=== PATIENT | female | born 1990 | race African-American/Black ===

== ENCOUNTER 2016-06-05 22:43 | Emergency (ER) | payer OTHER ==
[~2016-06-05] VITALS: Ht 167.6 cm; Wt 95.3 kg
[~2016-06-05 22:43] MED LIST: ALBU8.5H3 IH; LEVO750T31 PO; PRED20TA PO; PRED50TA PO; PROM118S2 PO
[2016-06-05 23:00] VITALS: BP 125/81
[2016-06-05] MEDS ORDERED: ALBU8.5H3 INH (23:11)
[2016-06-05] MEDS ORDERED: AZIT250T6 PO (23:11)
[2016-06-05] MEDS ORDERED: ALBUTEROL SULFATE 2.5 MG/3 ML NEBU. NEB ONE (23:30)
[2016-06-05] MEDS ORDERED: ALBUTEROL SULFATE 8GM INHALER. INH ONE (23:45)
--- NOTE | 2016-06-06 01:14 | ED.ADGEN ---
Past History Past Medical History: Asthma, Bronchitis Past Surgical History: No Surgical History Smoking: Cigarettes, Less than 1pk/day Additional Smoking Information: Education completed on smoking cessation Alcohol Use: None Drug Use: None Adult General Chief Complaint Chief Complaint Location refill, mild asthma exacerbation [facility] HPI This pleasant 26 showed female with a known history of asthma and hypertension presents with need for medication refill and wheezing. Patient has had an issue with daily cough and wheezing for weeks typically uses her inhaler 3-4 times a day but continues to smoke. Today her children were playing with her pro-air inhaler using all of her medication she had no witnessed treat herself today which is why she came to the emergency department. She denies any production with this cough denies any sore throat denies any runny nose congestion denies any chest pain. She does hear a slight wheeze she denies any recent antimicrobial use or steroids use. She has never been intubated or hospitalized for her asthma. She denies fevers or weight loss or night sweats nausea vomiting or change in voice with this cough. Review of Systems Review of Systems Constitutional: Denies fever or chills [] Eyes: Denies change in visual acuity, redness, or eye pain [] HENT: Denies nasal congestion or sore throat [] Respiratory: She has a nonproductive cough and slight wheezing with shortness of breath. Cardiovascular: No additional information not addressed in HPI [] GI: Denies abdominal pain, nausea, vomiting, bloody stools or diarrhea [] : Denies dysuria or hematuria [] Musculoskeletal: Denies back pain or joint pain [] Integument: Denies rash or skin lesions [] Neurologic: Denies headache, focal weakness or sensory changes [] Endocrine: Denies polyuria or polydipsia [] Current Medications Current Medications Current Medications Medications (Trade) Dose Ordered Sig/Emmanuelle Start Time Stop Time Status Last Admin Dose Admin Albuterol Sulfate (Ventolin Hfa) 1 puff 1X ONCE 06/05/16 23:45 06/05/16 23:46 DC 06/05/16 23:30 1 PUFF Albuterol Sulfate (Ventolin) 2.5 mg 1X ONCE 06/05/16 23:30 06/05/16 23:32 DC 06/05/16 23:07 2.5 MG Allergies Allergies Allergies Coded Allergies Type Severity Reaction Last Updated Verified No Known Drug Allergies 07/31/14 No Physical Exam Physical Exam Constitutional: Well developed, well nourished, no acute distress, non-toxic appearance. [] HENT: Normocephalic, atraumatic, bilateral external ears normal, oropharynx moist, no oral exudates, nose normal. [] Neck: Normal range of motion, no tenderness, supple, no stridor. [] Cardiovascular:Heart rate regular rhythm, no murmur [] Lungs & Thorax: No respiratory distress accessory muscle use slight wheeze with expiration. Abdomen: Bowel sounds normal, soft, no tenderness, no masses, no pulsatile masses. [] Skin: Warm, dry, no erythema, no rash. [] Back: No tenderness, no CVA tenderness. [] Extremities: No tenderness, no cyanosis, no clubbing, ROM intact, no edema. [] Neurologic: Alert and oriented X 3, normal motor function, normal sensory function, no focal deficits noted. [] Psychologic: Affect normal, judgement normal, mood normal. [] Current Patient Data Vital Signs Vital Signs Date Time Temp Pulse Resp B/P Pulse Ox O2 Delivery O2 Flow Rate FiO2 06/05/16 23:22 86 18 100 Room Air 06/05/16 23:00 98.1 EKG EKG [] Radiology/Procedures Radiology/Procedures [] Impressions: Mild asthma exacerbation, bronchitis, medication refill Course & Med Decision Making Course & Med Decision Making Pertinent Labs and Imaging studies reviewed. (See chart for details) [Patient with a known history of asthma but continues to smoke she is presently out of medications Rx for bronchitis as well as mild asthma to include azithromycin, albuterol, and a sternum talking to him about smoking cessation. Patient understands need for follow-up with chain link fence installer to modify her medications a primary care physician help her quit smoking and a need to control her medications and keep him out of her head and her children. She was also instructed at length about use of albuterol and spacer to improve delivery medications to her lungs.] Final Impression Final Impression [Patient refill mild asthma exacerbation], bronchitis Problems: Dragon Disclaimer Dragon Disclaimer This electronic medical record was generated, in whole or in part, using a voice recognition dictation system. PRIYA DILLON MD Jun 06, 2016 01:14
== END 2016-06-05 23:22 | disposition home or self-care (01) ==
LOC: ER 22:43
DX: Z76.0 Encounter for issue of repeat prescription (principal); J45.901 Unspecified asthma with (acute) exacerbation; J40 Bronchitis, not specified as acute or chronic; I10 Essential (primary) hypertension; F17.210 Nicotine dependence, cigarettes, uncomplicated
CPT/HCPCS: 94640; 99283; J7613

== ENCOUNTER 2016-09-06 08:33 | Emergency (ER) | payer OTHER ==
[~2016-09-06 08:33] MED LIST changes: -ALBU8.5H3 IH; +ALBU8.5H8 IH; +ALBU8.5H8 INH; +AZIT250T6 PO
--- NOTE | 2016-09-06 08:53 | PHYS DOC ---
Past History Past Medical History: Asthma, Bronchitis Past Surgical History: No Surgical History Smoking: Cigarettes, Less than 1pk/day Alcohol Use: None Drug Use: None Adult General Chief Complaint Chief Complaint: multiple HPI HPI Patient is a 26 year old female with a history of asthma who presents ambulatory to the ED with the complaint of being sick for about 2 days. #1, she has had a toothache in her left maxillary tooth and has some swelling of her cheek in that area now. #2 she has had a cough, wheezing, fever, sweats, chills , has felt sleepy and weak. These symptoms have been present when she had pneumonia in the past. She believes she might have pneumonia. She's had no vomiting. She has not been using her inhaler more frequently than usual. She does have an inhaler. She also has a nebulizer machine with medications. She does not currently have the mask to use it with. No other chronic medical problems, denies . Review of Systems Review of Systems Constitutional: As in history of present illness HENT: Dental complaint as in history of present illness Respiratory: As in history of present illness GI: Denies vomiting : Denies Musculoskeletal: Complains of aches and pains Integument: Denies rash or skin lesions [] Neurologic: Denies headache, focal weakness or sensory changes [] Allergies Allergies Allergies Coded Allergies Type Severity Reaction Last Updated Verified No Known Drug Allergies 07/31/14 No Physical Exam Physical Exam Constitutional: Well developed, well nourished, no acute distress, non-toxic appearance. Ambulatory, has a wheezy sounding cough, heart rate in the 130s, pulse ox on room air 95% HENT: Normocephalic, atraumatic, bilateral external ears normal, left maxillary second molar has a fracture and obvious caries with an old filling. There is no gingival swelling or drainage in this area, no evidence of periapical abscess. Externally, the left cheek is very slightly swollen without redness. Eyes: conjunctiva normal, no discharge. [] Neck: Normal range of motion, no stridor. [] Cardiovascular:Heart rate regular tachycardia, no murmur [] Lungs & Thorax: Moderately good air movement throughout with bilateral equal breath sounds, expiratory wheezes present throughout, no rales or rhonchi Skin: Warm, dry, no erythema, no rash. [] Extremities: No tenderness, no cyanosis, no clubbing, ROM intact, no edema. [] Neurologic: Alert and oriented X 3, normal motor function, normal sensory function, no focal deficits noted. [] EKG EKG [] Radiology/Procedures Radiology/Procedures Two-view chest x-ray read by me. Negative for infiltrate. [] Course & Med Decision Making Course & Med Decision Making Pertinent Labs and Imaging studies reviewed. (See chart for details) 26-year-old female with a history of asthma presents with 2 problems. #1, dental infection. #2, fever, cough, concern for pneumonia. She is relatively well appearing although tachycardic. I discussed with the patient giving her some IV fluids and a breathing treatment and checking a chest x-ray, she is agreeable to that plan. Patient was given a liter of IV fluids, 2 breathing treatments, and some IV steroids. Reexam of the lungs, better air movement, still with some end expiratory wheezes but much more clear. The patient has no dyspnea. Heart rate came down to around 100 after a liter of IV normal saline. See instructions for plan. [] Dragon Disclaimer Dragon Disclaimer This chart was dictated in whole or in part using Voice Recognition software in a busy, high-work load, and often noisy Emergency Department environment. It may contain unintended and wholly unrecognized errors or omissions. Departure Departure: Impression: Primary Impression: Dental infection Additional Impressions: Bronchitis Asthma exacerbation Disposition: 01 HOME, SELF-CARE Condition: IMPROVED Referrals: LINDSAY BOTELLO MD (PCP) Patient Instructions: Asthma, Adult, [id number], Dental Caries Additional Instructions: I have prescribed an antibiotic that will work for a dental infection and bronchitis. Take as directed. It is a 5 day antibiotic. For dental infection, it's important to see a dentist as soon as possible and get that tooth taken care of. For wheezing and bronchitis, take prednisone (steroid) as directed. You had your first dose in the emergency department today. Take your next dose this evening with dinner. After that, take every morning until gone. Take breathing treatments every 4 hours while awake. If you are not able to take a breathing treatment, use your inhaler instead. If your wheezing or shortness of breath worsens, return to emergency. Scripts Prednisone (PREDNISONE) 20 Mg Tablet 2 TAB PO DAILY for asthma, #10 TAB Prov: LEIF ZAMUDIO MD 09/06/16 Azithromycin (ZITHROMAX) 250 Mg Tablet 1 PKG PO UD for dental, bronchitis, #6 TAB Prov: LEIF ZAMUDIO MD 09/06/16 Problem Qualifiers LEIF ZAMUDIO MD Sep 06, 2016 08:53
[2016-09-06] MEDS ORDERED: IV NORMAL SALINE 1,000ML 1,000 ML IV SCH (09:00)
[2016-09-06] MEDS ORDERED: ACETAMINOPHEN 500 MG TABLET PO ONE (09:00)
[2016-09-06] MEDS ORDERED: methylPREDNISolone SOD SUCC PF 125 MG/2 ML VIAL. IV ONE (09:00)
[2016-09-06] MEDS ORDERED: IPRATRPIUM/ALBUTEROL 0.5/2.5MG 3 ML NEBU. NEB ONE ×2 (09:00→09:45)
--- NOTE | 2016-09-06 09:24 | RAD ---
2 view CXR: Clinical indications: Shortness of air and fever and weakness. History of asthma. Comparison: September 24, 2014. Findings: No acute lung infiltrate or pleural effusion or pulmonary edema or lung mass or pneumothorax is seen. The heart size, pulmonary vasculature, mediastinum and both chilo are unremarkable. The osseous structures appear intact. Impression: No acute radiographic abnormality is seen.
[2016-09-06] MEDS ORDERED: AZIT250T PO (10:11)
[2016-09-06] MEDS ORDERED: PRED20TA PO (10:11)
[2016-09-06] MEDS ORDERED: HYDROcodone/APAP 5/325MG 1 TAB TABLET ONE (10:24)
[2016-09-06 10:25] VITALS: BP 132/66
[2016-09-06] MEDS ORDERED: HYDROcodone/APAP 5/325MG 1 TAB TABLET PO ONE (10:30)
== END 2016-09-06 10:27 | disposition home or self-care (01) ==
LOC: ER 08:33
DX: K04.7 Periapical abscess without sinus (principal); J45.901 Unspecified asthma with (acute) exacerbation; F17.210 Nicotine dependence, cigarettes, uncomplicated
CPT/HCPCS: 71020; 94640; 96361; 96374; 99284; J2930; J7620; J7030

== ENCOUNTER 2016-11-03 15:06 | Emergency (ER) | payer OTHER ==
[~2016-11-03 15:06] MED LIST changes: +AZIT250T PO
[2016-11-03] MEDS ORDERED: IV NORMAL SALINE 1,000ML 1,000 ML IV SCH (15:24)
[2016-11-03 16:01] LABS: BARBITURATES NEG (NEG); BENZODIAZEPINES NEG (NEG); CANNABINOIDS POS (NEG); COCAINE NEG (NEG); METHADONE NEG (NEG); OPIATES NEG (NEG); PHENCYCLIDINE NEG (NEG)
[2016-11-03 16:02] LABS: AMPHETAMINE/METHAMPHETAMINE NEG (NEG)
--- NOTE | 2016-11-03 16:06 | PHYS DOC ---
Past History Past Medical History: Asthma Past Surgical History: No Surgical History Smoking: Cigarettes, Less than 1pk/day Alcohol Use: None Drug Use: None Adult General Chief Complaint Chief Complaint: ABDOMINAL PAIN HPI HPI Patient is a 26 year old -[place] female who presents with suprapubic discomfort. She states his been going on for approximately 2 weeks. Crampy in nature and goes away when she lays flat and is worse when she is up walking around. She denies any fevers chills nausea or vomiting, dysuria, vaginal bleeding discharge or constipation. She states she's been taking Tylenol for it daily. She can get in to see her primary care physician secondary to scheduling conflicts. She is unsure if she could be . She does have a history of social transmitted infections but she states his been many years ago. Review of Systems Review of Systems Constitutional: Denies fever or chills [] Eyes: Denies change in visual acuity, redness, or eye pain [] HENT: Denies nasal congestion or sore throat [] Respiratory: Denies cough or shortness of breath [] Cardiovascular: No additional information not addressed in HPI [] GI: Positive for abdominal pain, Denies nausea, vomiting, bloody stools or diarrhea [] : Denies dysuria or hematuria [] Musculoskeletal: Denies back pain or joint pain [] Integument: Denies rash or skin lesions [] Neurologic: Denies headache, focal weakness or sensory changes [] Endocrine: Denies polyuria or polydipsia [] Current Medications Current Medications Current Medications Medications (Trade) Dose Ordered Sig/Emmanuelle Start Time Stop Time Status Last Admin Dose Admin Fentanyl Citrate (Fentanyl 2ml Vial) 25 mcg PRN Q15MIN PRN 11/03/16 15:30 11/04/16 15:29 Sodium Chloride 1,000 ml @ 1,000 mls/hr Q1H 11/03/16 15:24 11/03/16 16:23 Allergies Allergies Allergies Coded Allergies Type Severity Reaction Last Updated Verified No Known Drug Allergies 07/31/14 No Physical Exam Physical Exam Constitutional: Well developed, well nourished, no acute distress, non-toxic appearance. [] HENT: Normocephalic, atraumatic, bilateral external ears normal, oropharynx moist, no oral exudates, nose normal. [] Eyes: PERRLA, EOMI, conjunctiva normal, no discharge. [] Neck: Normal range of motion, no tenderness, supple, no stridor. [] Cardiovascular:Heart rate regular rhythm, no murmur [] Lungs & Thorax: Bilateral breath sounds clear to auscultation [] Abdomen: Bowel sounds normal, soft, mild tender palpation in the suprapubic and right upper quadrant Bridget no rebound or guarding, no masses, no pulsatile masses. [] Skin: Warm, dry, no erythema, no rash. [] Back: No tenderness, no CVA tenderness. [] Extremities: No tenderness, no cyanosis, no clubbing, ROM intact, no edema. [] Neurologic: Alert and oriented X 3, normal motor function, normal sensory function, no focal deficits noted. [] Psychologic: Affect normal, judgement normal, mood normal. [] Current Patient Data Lab Results Laboratory Tests Test 11/03/16 15:20 Urine Opiates Screen Neg (NEG) Urine Methadone Screen Neg (NEG) Urine Barbiturates Neg (NEG) Urine Phencyclidine Screen Neg (NEG) Urine Amphetamine/Methamphetamine Neg (NEG) Urine Benzodiazepines Screen Neg (NEG) Urine Cocaine Screen Neg (NEG) Urine Cannabinoids Screen Pos (NEG) Urine Ethyl Alcohol Neg (NEG) EKG EKG [] Radiology/Procedures Radiology/[place] [address] IMAGING REPORT Signed PATIENT: ANN MARIE BLACKBURN ACCOUNT: [id number] : 1990 LOCATION: ER AGE: 26 SEX: F EXAM STATUS: REG ER ORD. PHYSICIAN: BELA BLUM MD REASON: abd pain PROCEDURE: OB <14 WKS Obstetrical ultrasound less than 14 weeks HISTORY: Abdominal pain COMPARISON: None FINDINGS: Multiple transabdominal sonographic images of the pelvis are submitted. Pelvic structures are poorly visualized. Transvaginal ultrasound: Multiple transvaginal sonographic images of the pelvis are submitted. Uterus measured 9.1 x 5.7 x 7.1 cm. Endometrium measured 0.9 cm. There is likely gestational sac in the uterus. pole, yolk sac, and cardiac activity are not seen at this time. Mean sac dimension of 0.67 cm corresponds with 5 weeks 3 days. Adjusted ultrasound age is 5 weeks 3 days with estimated delivery dated 07/03/2017. No significant free fluid is demonstrated. Amniotic fluid volume is considered within normal limits. Gestational sac morphology is within normal limits. Right maternal ovary measured 3.9 x 2.9 x 3 cm. There is 1.9 x 1.9 x 2 cm focus of hypoechogenicity of the right ovary. There is normal low resistance vascularity of the right ovary. Left ovary could not be visualized. IMPRESSION: 1. There is a single intrauterine gestational sac, adjusted ultrasound age 5 weeks 3 days with estimated delivery date 07/03/2017. cardiac activity is not seen at this time for which correlation with quantitative beta hCG and close interval follow-up imaging if needed is recommended. 2. There is likely corpus luteal cyst of the right ovary. 2. Left ovary could not be visualized. Electronically signed by: Dalton Marquez MD (11/03/2016 5:24 PM) [facility] DICTATED AND SIGNED BY: DALTON MARQUEZ MD DATE: 11/03/16 172 CC: BELA BLUM MD; LINDSAY BOTELLO MD ~ Course & Med Decision Making Course & Med Decision Making Pertinent Labs and Imaging studies reviewed. (See chart for details) [] Dragon Disclaimer Dragon Disclaimer This chart was dictated in whole or in part using Voice Recognition software in a busy, high-work load, and often noisy Emergency Department environment. It may contain unintended and wholly unrecognized errors or omissions. Departure Departure: Impression: Primary Impression: Hypokalemia Disposition: 07 AGAINST MEDICAL ADVICE Condition: STABLE Referrals: LINDSAY BOTELLO MD (PCP) Patient Instructions: Hypokalemia Additional Instructions: Your blood work shows her potassium level is low and you will need take medicines for the next 3 days to help replace it. You received the first dose later in the emergency department. Your ultrasound of your pelvis is pending at this time. I also have a bladder infection when he taken an antibiotic for the next 10 days. Your being prescribed nitrofurantoin/Macrobid for urinary tract infection. You can't states he gets or rebound ports and he went to leave against medical records assistant. You will need to follow-up with BODY WORK AUTO TRIMMER within the next several days. Please call their office to schedule appointment. Patient call DR. VALDES at [address] [address] IMAGING REPORT Signed PATIENT: ANN MARIE BLACKBURN ACCOUNT: [id number] : 1990 LOCATION: ER AGE: 26 SEX: F EXAM STATUS: REG ER ORD. PHYSICIAN: BELA BLUM MD REASON: abd pain PROCEDURE: OB <14 WKS Obstetrical ultrasound less than 14 weeks HISTORY: Abdominal pain COMPARISON: None FINDINGS: Multiple transabdominal sonographic images of the pelvis are submitted. Pelvic structures are poorly visualized. Transvaginal ultrasound: Multiple transvaginal sonographic images of the pelvis are submitted. Uterus measured 9.1 x 5.7 x 7.1 cm. Endometrium measured 0.9 cm. There is likely gestational sac in the uterus. pole, yolk sac, and cardiac activity are not seen at this time. Mean sac dimension of 0.67 cm corresponds with 5 weeks 3 days. Adjusted ultrasound age is 5 weeks 3 days with estimated delivery dated 07/03/2017. No significant free fluid is demonstrated. Amniotic fluid volume is considered within normal limits. Gestational sac morphology is within normal limits. Right maternal ovary measured 3.9 x 2.9 x 3 cm. There is 1.9 x 1.9 x 2 cm focus of hypoechogenicity of the right ovary. There is normal low resistance vascularity of the right ovary. Left ovary could not be visualized. IMPRESSION: 1. There is a single intrauterine gestational sac, adjusted ultrasound age 5 weeks 3 days with estimated delivery date 07/03/2017. cardiac activity is not seen at this time for which correlation with quantitative beta hCG and close interval follow-up imaging if needed is recommended. 2. There is likely corpus luteal cyst of the right ovary. 2. Left ovary could not be visualized. Electronically signed by: Dalton Marquez MD (11/03/2016 5:24 PM) [facility] DICTATED AND SIGNED BY: DALTON MARQUEZ MD DATE: 11/03/16 9461 CC: BELA BLUM MD; LINDSAY BOTELLO MD ~ Scripts Nitrofurantoin Monohyd/M-Cryst (MACROBID 100 MG CAPSULE) 100 Mg Capsule 1 CAP PO BID, #10 CAP Prov: BELA BLUM MD 11/03/16 Potassium Chloride (POTASSIUM CHLORIDE) 20 Meq Tablet.er 20 MEQ PO DAILY, #3 TAB Prov: BELA BLUM MD 11/03/16 BELA BLUM MD Nov 03, 2016 16:06
[2016-11-03 16:07] LABS: BASO % 0 % (0-3); EOS # 0.2 x10^3/uL (0.0-0.7); EOS % 2 % (0-3); HEMATOCRIT 38.6 % (36.0-47.0); HEMOGLOBIN 13.3 g/dL (12.0-15.5); LYMPH # 3.5 x10^3/uL (1.0-4.8); LYMPH % 35 % (24-48); MEAN CORPUSCULAR HEMOGLOBIN 32 pg (25-35); MEAN CORPUSCULAR HGB CONC 34 g/dL (31-37); MEAN CORPUSCULAR VOLUME 92 fL (79-100); MONO # 0.5 x10^3/uL (0.0-1.1); MONO % 5 % (0-9); NEUT # 5.8 x10^3uL (1.8-7.7); NEUT % 58 % (31-73); PLATELET COUNT 256 x10^3/uL (140-400); RED BLOOD COUNT 4.19 x10^6/uL (3.50-5.40); RED CELL DISTRIBUTION WIDTH 13.1 % (11.5-14.5)
[2016-11-03 16:08] VITALS: BP 126/72
[2016-11-03 16:17] LABS: ALBUMIN 4.2 g/dL (3.4-5.0); CREATININE 0.7 mg/dL (0.6-1.0); DIRECT BILIRUBIN 0.2 mg/dL (0.0-0.2); GFR 122.4; TOTAL BILIRUBIN 0.8 mg/dL (0.2-1.0); TOTAL PROTEIN 8.1 g/dL (6.4-8.2)
[2016-11-03 16:19] LABS: POTASSIUM 2.9 mmol/L (3.5-5.1)
[2016-11-03 16:25] LABS: CLARITY,URINE CLEAR; COLOR,URINE AMBER; GLUCOSE,URINE NEG (NEG)
[2016-11-03 16:26] LABS: BILIRUBIN,URINE NEG (NEG); NITRITE,URINE NEG (NEG); UROBILINOGEN,URINE 1 mg/dL (0.2 mg/dL)
[2016-11-03 16:27] LABS: BACTERIA,URINE FEW /HPF (0-FEW); SQUAMOUS EPITHELIAL CELL,UR MANY /LPF
[2016-11-03] MEDS ORDERED: IOHEXOL 300 MG/ML 75 ML VIAL. IV ONE (16:30)
[2016-11-03] MEDS ORDERED: NITR100C62 PO (17:16)
[2016-11-03] MEDS ORDERED: POTA20TA82 PO (17:16)
[2016-11-03] MEDS ORDERED: POTASSIUM CHLORIDE 20 MEQ TABLET.ER. PO ONE (17:20)
--- NOTE | 2016-11-03 17:28 | RAD ---
Obstetrical ultrasound less than 14 weeks HISTORY: Abdominal pain COMPARISON: None FINDINGS: Multiple transabdominal sonographic images of the pelvis are submitted. Pelvic structures are poorly visualized. Transvaginal ultrasound: Multiple transvaginal sonographic images of the pelvis are submitted. Uterus measured 9.1 x 5.7 x 7.1 cm. Endometrium measured 0.9 cm. There is likely gestational sac in the uterus. pole, yolk sac, and cardiac activity are not seen at this time. Mean sac dimension of 0.67 cm corresponds with 5 weeks 3 days. Adjusted ultrasound age is 5 weeks 3 days with estimated delivery dated 07/03/2017. No significant free fluid is demonstrated. Amniotic fluid volume is considered within normal limits. Gestational sac morphology is within normal limits. Right maternal ovary measured 3.9 x 2.9 x 3 cm. There is 1.9 x 1.9 x 2 cm focus of hypoechogenicity of the right ovary. There is normal low resistance vascularity of the right ovary. Left ovary could not be visualized. IMPRESSION: 1. There is a single intrauterine gestational sac, adjusted ultrasound age 5 weeks 3 days with estimated delivery date 07/03/2017. cardiac activity is not seen at this time for which correlation with quantitative beta hCG and close interval follow-up imaging if needed is recommended. 2. There is likely corpus luteal cyst of the right ovary. 2. Left ovary could not be visualized. Electronically signed by: Jesus Ellsworth MD (11/03/2016 5:24 PM) [facility]
== END 2016-11-03 17:40 | disposition left against medical advice (07) ==
LOC: ER 15:06
DX: E87.6 Hypokalemia (principal); Z33.1 Pregnant state, incidental; J45.909 Unspecified asthma, uncomplicated; F17.210 Nicotine dependence, cigarettes, uncomplicated
CPT/HCPCS: 36415; 76801; 80048; 80076; 80307; 81001; 81025; 82550; 83690; 83735; 84702; 85025; 85610; 85730; 96361; 96374; 99285; J3010; G0479; J7030

== ENCOUNTER 2017-05-12 20:17 | Emergency (ER) | payer OTHER ==
[~2017-05-12] VITALS: Ht 167.6 cm; Wt 110.3 kg
[~2017-05-12 20:17] MED LIST changes: +NITR100C62 PO; +POTA20TA82 PO
--- NOTE | 2017-05-12 20:19 | ED.ADGEN ---
Past History Past Medical History: Asthma Past Surgical History: No Surgical History Smoking: Cigarettes, Less than 1pk/day Alcohol Use: Rarely Drug Use: Marijuana Adult General Chief Complaint Chief Complaint " I am about 30 weeks... I ve been feeling lower pressure all day... and back pain..." " I feel like I am having contractions every 16 to 20 minutes..." HPI HPI Patient is a 27 year old female who presents with above hx and complaints back and abdomen pain. Pt. is reportedly 30 wks. gravid. Pt. G 7& P3. Has had 4 prior miscarriages. Pt. follows at [facility]- with "Jreemy". Pt. reportedly to follow with [facility] for delivery. Prior US child was breach, but recently turned to the cephalic position.. No history of trauma. No history of travel. Patient does smoke. Patient has had a 11 lifetime sex partners. Previous infections of chlamydia which was treated. Patient denies any vaginal bleeding or fluid noted. Patient normally follows with [facility] for her problems. Pt. not taking her vitamins. Review of Systems Review of Systems Constitutional: Denies fever or chills [] Eyes: Denies change in visual acuity, redness, or eye pain [] HENT: Denies nasal congestion or sore throat [] Respiratory: Denies cough or shortness of breath [] Cardiovascular: No additional information not addressed in HPI [] GI: Complaints of abdominal pain, nausea,. Denies vomiting, bloody stools or diarrhea [] : Denies dysuria or hematuria [] Musculoskeletal: Complaints of back pain . Denies other joint pain [] Integument: Denies rash or skin lesions [] Neurologic: Denies headache, focal weakness or sensory changes [] Endocrine: Denies polyuria or polydipsia [] All other systems were reviewed and found to be within normal limits, except as documented in this note. Family History Family History Non-contributory Current Medications Current Medications Current Medications Medications (Trade) Dose Ordered Sig/Emmanuelle Start Time Stop Time Status Last Admin Dose Admin Acetaminophen/ Hydrocodone Bitart (Lortab 5/325) 2 tab 1X ONCE 05/12/17 20:45 05/12/17 20:46 DC 05/12/17 21:19 2 TAB Ceftriaxone Sodium 1 gm/ Sodium Chloride 50 ml @ 100 mls/hr 1X ONCE 05/12/17 22:00 05/12/17 22:27 DC Ceftriaxone Sodium (Rocephin Im) 1 gm 1X ONCE 05/12/17 22:30 05/12/17 22:31 DC 05/12/17 22:42 1 GM Lactated Ringer's 1,000 ml @ 1,000 mls/hr 1X ONCE 05/12/17 22:30 05/12/17 23:27 DC 05/12/17 22:42 1,000 MLS/HR Lidocaine HCl 20 ml STK-MED ONCE 05/12/17 22:36 05/12/17 22:37 DC Magnesium Sulfate 50 ml @ 25 mls/hr 1X ONCE 05/12/17 21:15 05/12/17 23:14 DC 05/12/17 21:18 25 MLS/HR See Nursing for home meds. Allergies Allergies Allergies Coded Allergies Type Severity Reaction Last Updated Verified No Known Drug Allergies 07/31/14 No Physical Exam Physical Exam Constitutional: mild distress, non-toxic appearance. [] HENT: Normocephalic, atraumatic, bilateral external ears normal, oropharynx moist, no oral exudates, nose normal. [] Eyes: PERRLA, EOMI, conjunctiva normal, no discharge. [] Neck: Normal range of motion, no tenderness, supple, no stridor. [] Cardiovascular:Heart rate regular rhythm, no murmur [] Lungs & Thorax: Bilateral breath sounds scattered wheezes at apex on auscultation [] Abdomen: Bowel sounds normal, soft, mild tenderness, no masses, no pulsatile masses. [] Gravid. Vaginal - no bleeding or me on excluded noted. Mild discharge. Rectal hard stool in vault. FHR 140-150. No contractions noted. Os closed. Min. effacement. Infant in cephalic presentation. active. Skin: Warm, dry, no erythema, no rash. [] Back: some lumbar tenderness, no CVA tenderness. [] Extremities: No tenderness, no cyanosis, no clubbing, ROM intact, no edema. [] Neurologic: Alert and oriented X 3, normal motor function, normal sensory function, no focal deficits noted. []DTR + 2 patella Psychologic: Affect anxious, judgement normal, mood normal. [] Current Patient Data Vital Signs Vital Signs Date Time Temp Pulse Resp B/P (MAP) Pulse Ox O2 Delivery O2 Flow Rate FiO2 05/12/17 20:49 100 20 118/58 (78) 100 Room Air 05/12/17 20:17 98.6 Lab Results Laboratory Tests Test 05/12/17 20:35 05/12/17 20:44 White Blood Count 17.7 x10^3/uL (4.0-11.0) H Red Blood Count 3.68 x10^6/uL (3.50-5.40) Hemoglobin 11.5 g/dL (12.0-15.5) L Hematocrit 33.8 % (36.0-47.0) L Mean Corpuscular Volume 92 fL (79-100) Mean Corpuscular Hemoglobin 31 pg (25-35) Mean Corpuscular Hemoglobin Concent 34 g/dL (31-37) Red Cell Distribution Width 12.8 % (11.5-14.5) Platelet Count 282 x10^3/uL (140-400) Neutrophils (%) (Auto) 80 % (31-73) H Lymphocytes (%) (Auto) 14 % (24-48) L Monocytes (%) (Auto) 6 % (0-9) Eosinophils (%) (Auto) 1 % (0-3) Basophils (%) (Auto) 0 % (0-3) Neutrophils # (Auto) 14.1 x10^3uL (1.8-7.7) H Lymphocytes # (Auto) 2.5 x10^3/uL (1.0-4.8) Monocytes # (Auto) 1.0 x10^3/uL (0.0-1.1) Eosinophils # (Auto) 0.1 x10^3/uL (0.0-0.7) Basophils # (Auto) 0.0 x10^3/uL (0.0-0.2) Segmented Neutrophils % 74 % (35-66) H Band Neutrophils % 1 % (0-9) Lymphocytes % 12 % (24-48) L Atypical Lymphocytes % (Manual) 5 % (0-0) H Monocytes % 7 % (0-10) Myelocytes % 1 % (0-0) H Toxic Granulation Present Toxic Vacuolation Present Dohle Bodies Present Platelet Estimate Adequate (ADEQUATE) Polychromasia Present Prothrombin Time 10.2 SEC (9.4-11.4) Prothrombin Time INR 1.0 (0.9-1.1) PTT 25 SEC (23-33) Maternal Serum HCG Beta Subunit 33975 mIU/mL (0-6) H Sodium Level 137 mmol/L (136-145) Potassium Level 3.4 mmol/L (3.5-5.1) L Chloride Level 104 mmol/L (98-107) Carbon Dioxide Level 22 mmol/L (21-32) Anion Gap 11 (6-14) Blood Urea Nitrogen 4 mg/dL (7-20) L Creatinine 0.6 mg/dL (0.6-1.0) Estimated GFR (Cockcroft-Gault) 145.1 Glucose Level 96 mg/dL (70-99) Calcium Level 9.0 mg/dL (8.5-10.1) Magnesium Level 1.4 mg/dL (1.8-2.4) L Total Bilirubin 0.5 mg/dL (0.2-1.0) Direct Bilirubin 0.1 mg/dL (0.0-0.2) Aspartate Amino Transferase (AST) 21 U/L (15-37) Alanine Aminotransferase (ALT) 19 U/L (14-59) Alkaline Phosphatase 202 U/L (46-116) H Total Protein 7.0 g/dL (6.4-8.2) Albumin 2.6 g/dL (3.4-5.0) L Lipase 151 U/L (73-393) Urine Collection Type Unknown Urine Color Yellow Urine Clarity Hazy Urine pH 6.0 Urine Specific [place] 1.025 Urine Protein 30 mg/dl (NEG-TRACE) Urine Glucose (UA) Neg mg/dL (NEG) Urine Ketones (Stick) Trace mg/dL (NEG) Urine Blood Neg (NEG) Urine Nitrite Neg (NEG) Urine Bilirubin Neg (NEG) Urine Urobilinogen Dipstick 8 mg/dL (0.2 mg/dL) Urine Leukocyte Esterase Trace (NEG) Urine RBC 6-10 /HPF (0-2) Urine WBC 5-10 /HPF (0-4) Urine Squamous Epithelial Cells Many /LPF Urine Bacteria Mod /HPF (0-FEW) Urine Mucus Mod /LPF Urine Opiates Screen Neg (NEG) Urine Methadone Screen Neg (NEG) Urine Barbiturates Neg (NEG) Urine Phencyclidine Screen Neg (NEG) Urine Amphetamine/Methamphetamine Neg (NEG) Urine Benzodiazepines Screen Neg (NEG) Urine Cocaine Screen Neg (NEG) Urine Cannabinoids Screen Pos (NEG) Urine Ethyl Alcohol Neg (NEG) EKG EKG [] Radiology/Procedures Radiology/Procedures US = 32 wks 3 days, FHR 136, Cephalic, EDC= 07/04/17[] Course & Med Decision Making Course & Med Decision Making Pertinent Labs and Imaging studies reviewed. (See chart for details). Discussed presentation, testing and tx. plan with Dr. Moraes- [facility] for [facility]- [facility] and [facility]. Have pt push fluids. Keflex 500 tid. Follow up with her [facility]SFER LIAISON. Pt. recommended to stop smoking Tobacco and Marijuana. Must follow up pending cultures. [] Final Impression Final Impression 1. Abdomen and Back Pain 2. 3. O+ 4. Leukocytosis- 17.7 5. Anemia 11.5 6. Hypomagnesium 7. Marijuana and Tobacco Use 8. Hypokalemia 3.4 9. UTI 10.BHCG= 30, 356 11. US= EDC- 07/04/17, 32 Weeks,3 days, FHR- 136 0 [] Problems: Dragon Disclaimer Dragon Disclaimer This electronic medical record was generated, in whole or in part, using a voice recognition dictation system. SHANNA RAYGOZA MD May 12, 2017 20:19
[2017-05-12] MEDS ORDERED: IV RINGERS SOLUTION,LACTATED 1,000 ML IV SCH (20:45)
[2017-05-12] MEDS ORDERED: HYDROcodone/APAP 5/325MG 1 TAB TABLET PO ONE (20:45)
[2017-05-12 21:06] LABS: BASO % 0 % (0-3); EOS # 0.1 x10^3/uL (0.0-0.7); EOS % 1 % (0-3); HEMATOCRIT 33.8 % (36.0-47.0); HEMOGLOBIN 11.5 g/dL (12.0-15.5); LYMPH # 2.5 x10^3/uL (1.0-4.8); LYMPH % 14 % (24-48); MEAN CORPUSCULAR HEMOGLOBIN 31 pg (25-35); MEAN CORPUSCULAR HGB CONC 34 g/dL (31-37); MEAN CORPUSCULAR VOLUME 92 fL (79-100); MONO % 6 % (0-9); NEUT # 14.1 x10^3uL (1.8-7.7); NEUT % 80 % (31-73); PLATELET COUNT 282 x10^3/uL (140-400); RED BLOOD COUNT 3.68 x10^6/uL (3.50-5.40); RED CELL DISTRIBUTION WIDTH 12.8 % (11.5-14.5); WHITE BLOOD COUNT 17.7 x10^3/uL (4.0-11.0)
[2017-05-12 21:14] LABS: BARBITURATES NEG (NEG); BENZODIAZEPINES NEG (NEG); CANNABINOIDS POS (NEG); COCAINE NEG (NEG); METHADONE NEG (NEG); OPIATES NEG (NEG); PHENCYCLIDINE NEG (NEG)
[2017-05-12 21:15] LABS: AMPHETAMINE/METHAMPHETAMINE NEG (NEG)
[2017-05-12] MEDS ORDERED: MAGNESIUM SULFATE 2GM 50 ML IV ONE (21:15)
[2017-05-12 21:19] LABS: ALBUMIN 2.6 g/dL (3.4-5.0); CREATININE 0.6 mg/dL (0.6-1.0); DIRECT BILIRUBIN 0.1 mg/dL (0.0-0.2); GFR 145.1; MAGNESIUM 1.4 mg/dL (1.8-2.4); POTASSIUM 3.4 mmol/L (3.5-5.1); TOTAL BILIRUBIN 0.5 mg/dL (0.2-1.0)
[2017-05-12 21:43] LABS: BACTERIA,URINE MOD /HPF (0-FEW); BILIRUBIN,URINE NEG (NEG); CLARITY,URINE HAZY; COLOR,URINE YELLOW; GLUCOSE,URINE NEG (NEG); NITRITE,URINE NEG (NEG); SQUAMOUS EPITHELIAL CELL,UR MANY /LPF; UROBILINOGEN,URINE 8 mg/dL (0.2 mg/dL)
--- NOTE | 2017-05-12 22:03 | RAD ---
Limited ultrasound OB 05/12/2017 Clinical indication: Pelvic pain. COMPARISON: Ultrasound 11/03/2016 Findings: There is a single intrauterine gestation in cephalic presentation. The placenta is anterior/fundal in location without evidence of placental previa. GM measured 13.3. This value is within normal limits. Biometrical data is as follows: BPD = 7.9 cm, with a corresponding gestational age of 31 weeks 4 days. HC = 30.0 cm, with a corresponding gestational age of 32 weeks 5 days. AC = 27.7 cm, with a corresponding gestational age of 31 weeks 6 days. FL = 6.5 cm, with a corresponding gestational age of 33 weeks 5 days. Ratio of head circumference to abdominal circumference is 1.1. Estimated weight: 1972 g Overall, the estimated sonographic gestational age is 32 weeks 3 days for an estimated date of delivery of 07/04/2017 by ultrasound. Examination is not intended for anatomy. Cardiac activity is identified with estimated heart rate 136 bpm. IMPRESSION: 1. Single living intrauterine gestation with estimated sonographic gestational age of 32 weeks 3 days and estimated heart rate of 136 bpm. 2. Note exam is not intended for anatomy survey. Electronically signed by: Richie Nugent MD (05/12/2017 10:00 PM) [facility]
[2017-05-12] MEDS ORDERED: CEPH-264 PO (22:17)
[2017-05-12 22:28] LABS: % BANDS 1 % (0-9); % LYMPHS 12 % (24-48); % MONOS 7 % (0-10); % MYELOS 1 % (0-0); % SEGS 74 % (35-66); PLT ESTIMATE ADEQUATE (ADEQUATE)
[2017-05-12 22:30] LABS: TOXIC GRANULATION PRESENT; TOXIC VACUOLATION PRESENT
[2017-05-12] MEDS ORDERED: IV RINGERS SOLUTION,LACTATED 1,000 ML IV ONE (22:30)
[2017-05-12] MEDS ORDERED: cefTRIAXone IM 1 GM VIAL IM ONE (22:30)
[2017-05-12 22:31] LABS: POLYCHROMASIA PRESENT
[2017-05-12 22:33] LABS: % ATYL 5 % (0-0)
[2017-05-12] MEDS ORDERED: LIDOCAINE 1% Multi-Dose 20 ML VIAL. ONE (22:36)
[2017-05-12 23:09] VITALS: BP 104/83
[2017-05-14 07:13] LABS: HCV ANTIBODY <0.1 s/co ratio (0.0-0.9); HEP A IGM ABDY Negative (Negative)
[2017-05-14 14:09] LABS: CHLAMYDIA PROBE Negative (Negative)
== END 2017-05-12 23:26 | disposition home or self-care (01) ==
LOC: ER 20:17
DX: O26.893 Other specified pregnancy related conditions, third trimester (principal); O99.013 Anemia complicating pregnancy, third trimester; O99.283 Endocrine, nutritional and metabolic diseases complicating pregnancy, third trimester; O23.43 Unspecified infection of urinary tract in pregnancy, third trimester; O99.323 Drug use complicating pregnancy, third trimester; O99.333 Smoking (tobacco) complicating pregnancy, third trimester; O99.513 Diseases of the respiratory system complicating pregnancy, third trimester; R10.9 Unspecified abdominal pain; D72.829 Elevated white blood cell count, unspecified; E87.6 Hypokalemia; E83.42 Hypomagnesemia; F12.10 Cannabis abuse, uncomplicated; J45.909 Unspecified asthma, uncomplicated; Z3A.32 32 weeks gestation of pregnancy
CPT/HCPCS: 36415; 76815; 80048; 80074; 80076; 80307; 81001; 83690; 83735; 84702; 85007; 85025; 85610; 85730; 86593; 86703; 86900; 86901; 87086; 87491; 87591; 96361; 96365; 96366; 96372; 99285; J0696; J3475; J7120; Q0111; G0479

== ENCOUNTER 2017-06-01 20:12 | Emergency (ER) | payer OTHER ==
[~2017-06-01] VITALS: Ht 167.6 cm; Wt 110.3 kg
[~2017-06-01 20:12] MED LIST changes: +CEPH-264 PO
--- NOTE | 2017-06-01 20:39 | PHYS DOC ---
Past History Past Medical History: Asthma Past Surgical History: No Surgical History Smoking: Cigarettes, Less than 1pk/day Alcohol Use: Rarely Drug Use: Marijuana Adult General Chief Complaint Chief Complaint: ABDOMINAL PAIN IN HPI HPI Patient is a 27 year old F who presents with abdominal pain. Patient is 36 weeks gestational age she is A3. Patient's OB is a steerer and had no complications during this . Patient states for the past day she's had increased abdominal pain and pelvic pain. Patient also notes she has some left- sided flank pain. Patient denies any contractions. Patient denies any vaginal discharge or vaginal bleeding. Patient denies any fevers. Patient has no other complaints. Review of Systems Review of Systems GEN: Denies fevers, chills, sweats HEENT: Denies blurred vision, sore throat CV: Denies chest pain RESP: Denies shortness of air, cough GI: Abdominal and pelvic pain NEURO: Denies confusion, dizziness MSK: Denies weakness, joint pain/swelling All other systems were reviewed and found to be within normal limits, except as documented in this note. Allergies Allergies Allergies Coded Allergies Type Severity Reaction Last Updated Verified No Known Drug Allergies 07/31/14 No Physical Exam Physical Exam GEN.: No apparent distress. Alert and oriented. HEENT: Head is normocephalic, atraumatic NECK: Supple. LUNGS: CTAB. HEART: RRR, S1, S2 present. Peripheral pulses intact ABDOMEN: Soft, mild generalized tenderness, gravid uterus, no rebound tenderness. Positive bowel sounds. EXTREMITIES: Without any cyanosis. NEUROLOGIC: Normal speech, normal tone PSYCHIATRIC: Normal affect, normal mood. SKIN: No ulcerations EKG EKG [] Radiology/Procedures Radiology/Procedures heart tones 165[] Course & Med Decision Making Course & Med Decision Making Pertinent Labs and Imaging studies reviewed. (See chart for details) ED course: Patient was seen and examined in the emergency room patient is a 36 weeks gestational age therefore needs to be transferred to a facility with PSYCHOLOGIST PERSONNEL services 2029: Discussed CC/HP/PMH with Dr. Lin (OB @ [facility]) and states she can accept the patient and that must go through the ER 2034: Discussed CC/HP/PMH with ER physician @ [facility] and recommends admit to OB and called and talked with the enginehouse brakeman and transmitted to the enginehouse brakeman. 2039: Discussed CC/HP/PMH with Dr. Escobar (jolon sup at [facility]) and and she states she will have to call administration since the PSYCHOLOGIST PERSONNEL will not accept the patient 2114: Discussed CC/HP/PMH with Dr. Lin and accepts transfer to the labor and delivery floor MDM: After reviewing the chart, CC/HPI/PMH, physical exam, I do not believe the patient is an active labor however the patient is 36 weeks gestational age and last 2 she delivered at 35 weeks and she is complaining of pelvic pain , abdominal pain and left flank pain therefore I believe the patient needs to be transferred to a facility with labor and delivery and OB services. Patient be transferred directly to labor and delivery for further evaluation and management. [] [] Dragon Disclaimer Dragon Disclaimer This electronic medical record was generated, in whole or in part, using a voice recognition dictation system. Departure Departure: Impression: Primary Impression: Abdominal pain affecting Admitting Physician: Other (Dr. Lin, OB at [facility] ) Condition: STABLE Referrals: PCP,NO (PCP) EDDIE LOVE DO Jun 01, 2017 20:39
[2017-06-01 21:33] LABS: BILIRUBIN,URINE NEG (NEG); CLARITY,URINE HAZY; COLOR,URINE YELLOW; GLUCOSE,URINE NEG (NEG); NITRITE,URINE NEG (NEG); UROBILINOGEN,URINE 8 mg/dL (0.2 mg/dL)
[2017-06-01 21:34] LABS: BACTERIA,URINE MOD /HPF (0-FEW); SQUAMOUS EPITHELIAL CELL,UR MANY /LPF
[2017-06-01 22:22] VITALS: BP 118/56
== END 2017-06-01 22:38 | disposition short-term general hospital (02) ==
LOC: ER 20:12
DX: O26.893 Other specified pregnancy related conditions, third trimester (principal); R10.2 Pelvic and perineal pain; O99.513 Diseases of the respiratory system complicating pregnancy, third trimester; J45.909 Unspecified asthma, uncomplicated; O99.323 Drug use complicating pregnancy, third trimester; F12.10 Cannabis abuse, uncomplicated; O99.333 Smoking (tobacco) complicating pregnancy, third trimester; Z3A.36 36 weeks gestation of pregnancy
CPT/HCPCS: 81001; 87086; 99285-25